=== PATIENT | female | born 1990 | race Caucasian/White ===

== ENCOUNTER → 2017-12-04 16:10 | Outpatient (CLI) | payer MEDICAID, SELFPAY ==
[2017-12-12 08:21] LABS: HPV APTIMA, High Risk Negative (Negative); HPV Reflexed? YES, CHARGE PATIENT
== END ==
PROVIDERS: Visit Provider Obstetrics & Gynecology
DX: Z12.4 Encounter for screening for malignant neoplasm of cervix (principal)
CPT/HCPCS: 87624; 88175; G0145

== ENCOUNTER 2018-01-10 12:13 | Emergency (ER) | payer MEDICAID, SELFPAY ==
[2018-01-10 12:14] VITALS: BP 108/79; PULSE 87; RESP 16; TEMP 36.6; O2SAT 97; BMI 31.2
[2018-01-10 13:02] LABS: Absolute Lymphocyte Count 2.57 X10^3/ul (0.83-4.51); Absolute Neutrophil Count 4.4 X10^3/uL (2.0-7.7); Basophil# 0.02 X10^3/uL; Basophil% 0.3 % (0-1); Eosinophil# 0.38 X10^3/uL; Eosinophils% 4.9 % (0-5); Hemoglobin 13.8 g/dl (12.0-15.0); Lymphocyte # 2.57 X10^3/ul (4.0); Lymphocyte % 33.2 % (19-41); Mean Corp Hgb Conc 33.7 g/gl (32-36); Mean Corpuscular Hgb 30.1 pg (27.0-32.0); Mean Corpuscular Volume 89.3 fL (81-99); Mean Platelet Vol. 9.8 fl (6.2-12.0); Monocyte# 0.31 X10^3/uL; Neutrophil # 4.44 X10^3/uL (2.7-7.7); Neutrophil % 57.5 % (47-70); Platelet Count 246 K/mm3 (150-450); RBC Distribution Width CV 12.9 % (11.6-14.6); RBC Distribution Width SD 41.9 fl (35.1-43.9); Red Blood Count 4.59 M/mm3 (4.2-5.4); White Blood Count 7.7 K/mm3 (4.4-11.0)
[2018-01-10 13:03] LABS: POSITIVE COUNT NO; POSITIVE DIFFERENTIAL NO; POSITIVE MORPHOLOGY NO
[2018-01-10 13:16] LABS: Anion Gap 4 (5-15); BUN 8 mg/dL (7-18); BUN/Creat Ratio 12.8 RATIO (10-20); Calcium,Total 8.4 mg/dL (8.5-10.1); Chloride 109 mmol/L (98-107); Creatinine, Serum 0.63 mg/dL (0.55-1.02); EST Glomerular Filtration Rate 120 mL/min (>60); Est Glom Filt Rate - Afr Amer 146 mL/min (>60); Estimated Creatinine Clearance 95.49 ml/min; Glucose 78 mg/dL (74-106); Potassium 3.9 mmol/L (3.5-5.1); Sodium Level 141 mmol/L (136-145)
--- NOTE | 2018-01-10 13:20 | ED.VISSUMM ---
- ER Visit Summary Date of Service: 01/10/18 Chief Complaint: I do not like feeling like this History of Present Illness: The patient is a 27 F who presents with chief complaint of being sleepy, slurred speech and not herself since taking her first dose of Celexa and hydroxyzine last evening. Documents from clinic clinic were reviewed. She was seen for fatigue and was prescribed medication for depression anxiety. She denies fever, chills night sweats. Denies weight gain or weight loss. She denies any ocular, visual auditory symptoms. She denies chest pain, palpitations or rapid heart rate. She denies shortness of breath, difficulty breathing, dyspnea on exertion, orthopnea or PND. She denies any bowel pain, nausea, vomiting or diarrhea. She denies any dysuria, frequency, urgency hematuria. She denies any myalgias or arthralgias or back pain. She denies rash or any lesions. She does complain of generalized weakness and paresthesia bilaterally. She has no other complaints please read written note. Next field vital signs are normal. Patient appears groggy. Speech is slightly slurred. Eyes are glassy. Pupils are equal round reactive. Extra muscles are intact. Conjunctive is normal. Sclerae anicteric. TMs normal. Posterior pharynx are empty or exudate. Uvula is midline. There is no oral lesions noted. Mucosa is slightly dry. Heart is regular without murmur, gallop or rub. S1 and S2 are normal. Lungs are clear to auscultation with good movement of air bilaterally. Abdomen is soft nontender. Patient is easily arousable and oriented ?3. Motor is 5 over 5. Sensory is intact. DTRs are symmetric with no clonus or Babinski sign. Cranial 2 through 12 are intact. Cerebellar testing is normal. Physical Examination: BMP and CMP are unremarkable. Test Results: BC and BMP were obtained since she is scheduled for outpatient testing and to rule out infectious cause or electrolyte abnormality. Suspect this is secondary to adverse reaction to medication. Emergency Department Course and Treatment: Patient underwent evaluation for her drowsiness to rule out electrolyte or infectious etiology. Treatment Plan: Discontinue Celexa and hydroxyzine. She was instructed to contact the physician assistant professor of geography to prescribe those medicines. Disposition: Discharged home in stable condition with spouse Impression: Adverse drug reaction This note was generated with Balls[employer]ieation software. It may contain incorrect words, spelling, and punctuation that were not noted in review of the chart prior to signing ED Disposition - Plan for ED Patient: Disposition: Home or Assisted Living Chief Complaint: General Illness Instructions: ED Drug React Adverse Other Referrals: Care Physician,No Primary [Primary Care Provider] - Additional Instructions: Contact Thao Gagnon physician assistant professor of geography who you saw yesterday at the [facility].
--- NOTE | 2018-01-10 13:24 | ED.DCSUM_ITS ---
- ER Visit Summary Date of Service: 01/10/18 Chief Complaint: I do not like feeling like this History of Present Illness: The patient is a 27 F who presents with chief complaint of being sleepy, slurred speech and not herself since taking her first dose of Celexa and hydroxyzine last evening. Documents from clinic clinic were reviewed. She was seen for fatigue and was prescribed medication for depression anxiety. She denies fever, chills night sweats. Denies weight gain or weight loss. She denies any ocular, visual auditory symptoms. She denies chest pain, palpitations or rapid heart rate. She denies shortness of breath, difficulty breathing, dyspnea on exertion, orthopnea or PND. She denies any bowel pain, nausea, vomiting or diarrhea. She denies any dysuria, frequency, urgency hematuria. She denies any myalgias or arthralgias or back pain. She denies rash or any lesions. She does complain of generalized weakness and paresthesia bilaterally. She has no other complaints please read written note. Next field vital signs are normal. Patient appears groggy. Speech is slightly slurred. Eyes are glassy. Pupils are equal round reactive. Extra muscles are intact. Conjunctive is normal. Sclerae anicteric. TMs normal. Posterior pharynx are empty or exudate. Uvula is midline. There is no oral lesions noted. Mucosa is slightly dry. Heart is regular without murmur, gallop or rub. S1 and S2 are normal. Lungs are clear to auscultation with good movement of air bilaterally. Abdomen is soft nontender. Patient is easily arousable and oriented ?3. Motor is 5 over 5. Sensory is intact. DTRs are symmetric with no clonus or Babinski sign. Cranial 2 through 12 are intact. Cerebellar testing is normal. Physical Examination: BMP and CMP are unremarkable. Test Results: BC and BMP were obtained since she is scheduled for outpatient testing and to rule out infectious cause or electrolyte abnormality. Suspect this is secondary to adverse reaction to medication. Emergency Department Course and Treatment: Patient underwent evaluation for her drowsiness to rule out electrolyte or infectious etiology. Treatment Plan: Discontinue Celexa and hydroxyzine. She was instructed to contact the physician warehouse administrative assistant to prescribe those medicines. Disposition: Discharged home in stable condition with spouse Impression: Adverse drug reaction This note was generated with Root Orangeation software. It may contain incorrect words, spelling, and punctuation that were not noted in review of the chart prior to signing ED Disposition - Plan for ED Patient: Disposition: Home or Assisted Living Chief Complaint: General Illness Instructions: ED Drug React Adverse Other Referrals: Care Physician,No Primary [Primary Care Provider] - Additional Instructions: Contact Thao Gagnon physician warehouse administrative assistant who you saw yesterday at the [facility].
[2018-01-10 14:05] VITALS: BP 103/62
== END 2018-01-10 14:06 | disposition home or self-care (01) ==
PROVIDERS: Emergency Provider Emergency Medicine
DX: R47.81 Slurred speech (principal); T43.225A Adverse effect of selective serotonin reuptake inhibitors, initial encounter; T43.595A Adverse effect of other antipsychotics and neuroleptics, initial encounter; Y92.9 Unspecified place or not applicable; F32.9 Major depressive disorder, single episode, unspecified; F41.9 Anxiety disorder, unspecified
CPT/HCPCS: 80048; 85025; 99282

== ENCOUNTER → 2019-01-09 13:05 | Outpatient (CLI) | payer MEDICAID, SELFPAY ==
[2019-01-16 21:01] LABS: HPV APTIMA, High Risk Negative (Negative)
[2019-01-16 21:18] LABS: HPV Reflexed? YES, CHARGE PATIENT
== END ==
PROVIDERS: Visit Provider Obstetrics & Gynecology
DX: Z12.4 Encounter for screening for malignant neoplasm of cervix (principal)
CPT/HCPCS: 87624; 88175; G0145

== ENCOUNTER → 2020-03-07 11:03 | Outpatient (CLI) | payer MEDICAID, SELFPAY ==
[2020-03-07 13:12] LABS: Internal QC Validated? YES +Cl - CLEAR BKGD; Pregnancy, Serum, hCG Quali. NEGATIVE Negative
[2020-03-07 13:23] LABS: Progesterone Level 7.96 ng/mL (See Comment)
== END ==
PROVIDERS: Visit Provider Obstetrics & Gynecology
DX: Z30.430 Encounter for insertion of intrauterine contraceptive device (principal)
CPT/HCPCS: 36415; 84144; 84703

== ENCOUNTER → 2020-03-10 17:25 | Outpatient (CLI) | payer MEDICAID, SELFPAY ==
[2020-03-10 20:30] LABS: Chlamydia Trachomatis by PCR Negative (Negative); Neisserai gonorrhoeae by PCR Negative (Negative); Probe Check PASS; Sample Adequacy Control PASS; Specimen Processing Control PASS
[2020-03-22 04:57] LABS: HPV APTIMA, High Risk Negative (Negative); HPV Reflexed? YES, CHARGE PATIENT
== END ==
PROVIDERS: Visit Provider Obstetrics & Gynecology
DX: Z12.4 Encounter for screening for malignant neoplasm of cervix (principal); Z11.3 Encounter for screening for infections with a predominantly sexual mode of transmission
CPT/HCPCS: 87491; 87591; 87624; 88175; G0145

== ENCOUNTER → 2020-04-14 15:02 | Outpatient (CLI) | payer MEDICAID, SELFPAY ==
--- NOTE | 2020-04-14 | IMM_PTH ---
PATIENT: NANI HOUSER LOC: [facility] U#:[id number] AGE/SX: 34/F ROOM: RE04/14/[address]: Dr. Joselo Valentine MD : 1990 BED: DIS: SPEC #: [id number] RECD: 04/18/20 13:00 STATUS: TAO ALLISON #: [id number] BENY: 04/14/20 00:[address]: Joselo Valentine DEPT: IMMUNOHISTOCHEMISTRY RECD BY: Juliana Crouch ENTERED: 04/18/20 13:01 SP TYPE: IMMUNO OTHR DR: No Primary Care Phys Tissues: B - Uterine cervix, NOS Procedures: p16 (initial) KI-67 (add) PHYSICIAN & INSTITUTION [place] [id number] SPECIMEN INFORMATION: Tissue Source: B - Cervical biopsy at 6 o'clock Clinical Info: ASCUS Specimen Number: [id number] CPT code: 52335, 00170 METHODOLOGY: Deparaffinized sections of prefer/formalin-fixed tissue or PAP/DQ stained slides are incubated with monoclonal/polyclonal antibodies/oligonucleotide probes. Localization is made via biotin free immunoperoxidase method. Appropriate controls are performed and reacted as expected. Results on target cell population are indicated in the following table: RESULTS: ANTIBODY / CLONE RESULT Block B P16 (E6H4) positive, focal & patchy Ki-67 (30-9) positive, low These tests were developed and their performance characteristics determined by [facility]. They may not have been cleared or approved by the U.S. Food and Drug Administration. The FDA has determined that such clearance or approval is not necessary. The above immunohistochemical/dualISH markers are ordered and reviewed by the Pathologist. INTERPRETATION: B. Cervix at 6 o'clock, biopsy: Focal changes suspicious for HPV cytopathic effects. SJ:pedro 04/18/20
--- NOTE | 2020-04-14 12:00 | CER_PTH ---
PATIENT: NANI HOUSER LOC: [facility] U#:[id number] AGE/SX: 34/F ROOM: RE04/14/[address]: Dr. Joselo Valentine MD : 1990 BED: DIS: SPEC #: [id number] RECD: 04/14/20 15:38 STATUS: TAO ALLISON #: [id number] BENY: 04/14/20 12:[address]: Joselo Valentine DEPT: SURGICAL PATHOLOGY RECD BY: Jose Villareal ENTERED: 04/15/20 07:50 SP TYPE: CERV OTHR DR: No Primary Care Phys Tissues: A - Uterine cervix, NOS B - Uterine cervix, NOS Procedures: Surgery Specimen Level IV HEADER OPERATION: Colposcopy PRE-OP DIAGNOSIS: ASCUS pap x3, Mirena IUD TISSUE SUBMITTED: A - ECC, B - Cervical biopsy at 6 o'clock MICROSCOPIC DIAGNOSIS A. ECC: Fragments of benign ectocervical epithelium, benign endocervical epithelium and benign endocervical mucosa with mild chronic inflammation, blood and mucous. Negative for dysplasia. B. Cervix 6 o'clock, biopsy: Focal changes suspicious for HPV cytopathic effects. Chronic inflammation. See comment. NAMITA:pedro 04/18/20 COMMENT Immunohistochemistry ([id number]) for surrogate HPV marker (p16) supports the above diagnosis. MICROSCOPIC DESCRIPTION Slides are reviewed. GROSS DESCRIPTION A - Received in fixative is one container labeled with the patient's name and designated ECC. The specimen consists of multiple fragments of hemorrhagic mucoid tissue that in aggregate measure 1.5 x 0.8 x 0.2 cm. The specimen is totally submitted in one cassette. B - Received in fixative is one container labeled with the patient's name and designated cervical biopsy 6 o'clock. The specimen consists of multiple irregular fragments of young soft tissue mixed with mucoid tissue that in aggregate measure 2 x 0.5 x 0.1 cm. The specimen is totally submitted in one cassette. / NAMITA:pedro 04/15/20 TC:5 CPT: 24044 x2
== END ==
PROVIDERS: Visit Provider Obstetrics & Gynecology
DX: R87.610 Atypical squamous cells of undetermined significance on cytologic smear of cervix (ASC-US) (principal); Z97.5 Presence of (intrauterine) contraceptive device
CPT/HCPCS: 88305; 88341; 88342

== ENCOUNTER 2024-08-24 20:52 | Day surgery (SDC) | payer MEDICAID, SELFPAY ==
[2024-08-24 20:54] VITALS: BP 122/89; PULSE 91; RESP 18; TEMP 36.9; O2SAT 100; BMI 24.8
[2024-08-24 22:44] LABS: Absolute Lymphocyte Count 3.53 X10^3/uL (0.83-4.51); Absolute Neutrophil Count 8.2 X10^3/uL (2.0-7.7); Bacteria 0 SEEN /hpf (None Seen); Basophil# 0.06 X10^3/uL; Basophil% 0.5 % (0-1); Eosinophil# 0.48 X10^3/uL; Eosinophils% 3.6 % (0-5); Hematocrit 36.7 % (37-47); Hemoglobin 12.4 g/dL (12.0-15.0); Lymphocyte # 3.53 X10^3/ul (0.83-4.51); Lymphocyte % 26.8 % (19-41); Mean Corp Hgb Conc 33.8 g/dL (32-36); Mean Corpuscular Hgb 30.8 pg (27.0-32.0); Mean Corpuscular Volume 91.3 fL (81-99); Mean Platelet Vol. 9.8 fl (6.2-12.0); Monocyte# 0.82 X10^3/uL; Monocyte% 6.2 % (0-10); Mucous, Urine 0 SEEN /hpf (<or=2+); NRBC Flagged by Analyzer 0 % (0-5); Neutrophil # 8.24 X10^3/uL (2.7-7.7); Neutrophil % 62.6 % (47-70); Platelet Count 271 K/mm3 (150-450); RBC Distribution Width CV 12.6 % (11.6-14.6); Red Blood Count 4.02 M/mm3 (4.2-5.4); White Blood Count 13.2 K/mm3 (4.4-11.0)
[2024-08-24 22:47] LABS: Color, Urine Yellow (Yellow); Glucose, Dipstick Normal (Normal); Ketone-Dipstick Negative (Negative); Leukocyte Esterase-Dipstick 25 /ul (Negative); Nitrite-Dipstick Negative (Negative); Occult Blood-Urine 25 /ul (Negative); Protein-Dipstick 15 mg/dl (Negative); Urine Bilirubin Dipstick Negative (Negative); Urine Clarity Clear (Clear); Urine Urobilinogen 1 mg/dl (Normal)
[2024-08-24 22:52] VITALS: BP 124/86
[2024-08-24 22:54] LABS: Red Blood Cells-Urine 0-5 SEEN /hpf (0-5); White Blood Cells 0-5 SEEN /hpf (0-5)
[2024-08-24 22:55] LABS: Amorphous Sediment 3+; Internal QC Validated? YES +Cl - CLEAR BKGD; Squamous Epithelial Cells - UA 0-5 SEEN /hpf (5-10)
[2024-08-24 22:57] LABS: Pregnancy, Urine Positive Negative
--- NOTE | 2024-08-24 22:58 | US_ITS ---
ACR Level 3 findings have been noted. An addendum which confirms receipt of the report will follow. INDICATION: pain ,bleeding, positive preg test in ER EXAMINATION: Ultrasound US OB Less Than 14 Weeks COMPARISON: None. FINDINGS: 107 grayscale ultrasound images of the pelvis obtained transvaginally. In addition dedicated ovarian color Doppler and Doppler waveform interrogation was performed. Numerous cinematic series is provided. UTERUS: Uterus measures : 7.7 x 4.4 x 3.2 cm. IUD is in place with associated irregular nodular thickening of the endometrium containing moderate amount of poorly organized endometrial fluid. No definite intrauterine is identified. Myometrium is heterogeneous containing prominent vascularity. ADNEXA: Flow is documented to bilateral ovaries by color Doppler as well as Doppler waveform. There is a large 4.2 cm heterogeneous multicystic left adnexal lesion. Numerous bilateral peripheral subcentimeter ovarian follicles in a pattern which can be seen with polycystic ovaries in the appropriate clinical setting. Small to moderate amount of nearly anechoic free fluid. US/Transvaginal w/Preg US IMPRESSION: IUD is in place with associated irregular nodular thickening of the endometrium containing moderate amount of poorly organized endometrial fluid. No intrauterine is identified. Large 4 cm multicystic left adnexal lesion which may represent hemorrhagic cyst or other lesion without obvious pole, although ectopic is not excluded. Recommend correlation with beta-hCG value. Numerous bilateral peripheral subcentimeter ovarian follicles in a pattern which can be seen with polycystic ovaries in the appropriate clinical setting. Electronically Signed: Rusty Mayers MD at 0:36 EST ,
[2024-08-24 22:59] LABS: Anion Gap 6 (5-15); BUN 14 mg/dL (7-18); BUN/Creat Ratio 25.1 RATIO (10-20); Calcium,Total 8.6 mg/dL (8.5-10.1); Chloride 108 mmol/L (98-107); Creatinine, Serum 0.56 mg/dL (0.55-1.02); EST Glomerular Filtration Rate 132 mL/min (>60); Est Glom Filt Rate - Afr Amer 160 mL/min (>60); Estimated Creatinine Clearance 112.62 ml/min; Glucose 90 mg/dL (74-106); Potassium 3.7 mmol/L (3.5-5.1); Sodium Level 139 mmol/L (136-145)
[2024-08-24 23:39] LABS: hCG Titer Quant., Serum 299 mIU/mL (1-3)
[2024-08-25] VITALS (12 sets, daily range): BP systolic 114–157; BP diastolic 77–129; PULSE 74–123; RESP 18–36; TEMP 36.2–37; O2SAT 95–100; BMI 24.8
--- NOTE | 2024-08-25 00:26 | ED.VIS.FEGU ---
HPI HPI - Female History of Present Illness Chief Complaint: Vag Bleeding Informant: patient Narrative Narrative: Patient is a G5, P3 presenting with abnormal vaginal bleeding and pelvic pain worse on the left for the past month. She states that she has an IUD that has been in place for the past 5 years and is due to be replaced. She notes that she has not had a. Up until the last month. She states she has had episodes of very heavy bleeding with clots. Today she notes the bleeding is less and she just spotting. She saw her primary care doctor in [place] who did an exam and checked labs which she was told were negative/normal. She has not had any imaging. She was empirically treated for diverticulitis 1 week ago with no improvement of her symptoms. She notes that she has been having some diarrhea for few days that has resolved. She denies any blood in her stool. 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 Has a family history of ovarian cancer. She notes that she is tried using tampons but it hurts which is unusual for her. She denies any associated vaginal discharge. She has the pain is more in her pelvis on the left side but shoots down to her leg and into her kidney. She has had some mild associated dysuria. No vomiting reported. Intermittently feels lightheaded. No other complaints or concerns reported at this time. PFSH [facility] Home Medications ?Medication ?Instructions ?Recorded ?Last Taken ?Type citalopram 20 mg tablet 20 mg PO DAILY 01/10/18 Unknown History Allergy/AdvReac Type Severity Reaction Status Date / Time morphine AdvReac Other Verified 08/24/24 20:53 Social History Smoking Status: Current every day smoker tobacco type: cigarettes ROS ROS ED Constitutional Constitutional ED: Reports chills; Denies fever(s) Gastrointestinal Gastrointestinal: Reports abdominal pain, diarrhea and nausea; Denies constipation or vomiting Genitourinary Genitourinary ED: Reports dysuria and other Details: Heavy vaginal bleeding Musculoskeletal Musculoskeletal: Denies arthralgias or myalgias Integumentary Denies rash Neurologic Neurologic: Reports weakness Hematologic/Lymphatic Hematologic/Lymphatic: Denies easy bleeding or easy bruising EXAM Physical Exam Const Vital Signs: 08/24/24 20:54 08/24/24 22:52 08/25/24 00:00 Temperature 98.4 F Temperature Source Temporal Pulse Rate 91 76 Respiratory Rate 18 18 Blood Pressure 122/89 H 124/86 H 128/91 H Blood Pressure Mean 100 98 103 Pulse Ox 100 99 Oxygen Delivery Method Room Air Room Air Positive well nourished and well developed General Appearance ED: well developed and NAD; Negative for pallor HEENT Reports moist mucous membranes Eyes PERRL Neck supple Chest Wall inspection of chest normal Resp normal respiratory effort and clear to auscultation bilaterally Cardio regular rate and regular rhythm GI soft to palpation Auscultation: normoactive bowel sounds Palpation: tender LLQ; Negative for guarding or rigid Back/Spine no CVA tenderness Extremity normal to inspection Neuro oriented x3 Sensorium / Orientation: alert Motor Exam: Negative for general weakness Psych mental status grossly normal Skin no rashes or lesions noted General Skin Exam: Negative for pallor MDM MDM MDM Narrative Medical decision making narrative: Patient evaluated for heavy vaginal bleeding and pelvic pain. States that she has an IUD but needs to be replaced. Differential includes ectopic , failure of IUD, migration of IUD, uterine perforation, dysfunctional uterine bleeding, intra-abdominal infection, symptomatic anemia and UTI. Will start with urine, urine , CBC, BMP and pelvic ultrasound to assess uterine lining and IUD positioning. Patient initially is agreeable to Toradol for pain control. Urine comes back negative positive. Will add on hCG quant's, OB ultrasound, Rh number and defer Toradol. Patient is a mild leukocytosis of 13.2. Hemoglobin is normal at 12.4. Quant is elevated to 99. Urinalysis largely normal. Patient is O-. Is ordered RhoGAM. Ultrasound shows IUD in place with associate irregular nodular thickening of the endometrium containing bladder amounts of poorly organized in the endometrial fluid. There is no IUP appreciated. There is a large 4 cm multicystic left adnexal lesion which may represent hemorrhagic cyst or other lesion without obvious pole and cannot exclude ectopic . Case discussed with DELIVERY REPRESENTATIVE on-call, Dr. Jerald Ojeda. She will come in to evaluate the patient. She suspects this is an ectopic . Patient's again is offered pain medicine but she does except at this time. She is informed of our concerns. Patient was taken to the OR by DELIVERY REPRESENTATIVE. Discharged from there. Lab Data Attestation: I reviewed the patient's lab results. Labs: Laboratory Results - last 24 hr 08/24/24 08/24/24 22:37 23:15 WBC 13.2 H RBC 4.02 L Hgb 12.4 Hct 36.7 L MCV 91.3 MCH 30.8 MCHC 33.8 RDW Std Deviation 42.0 RDW Coeff of Shannan 12.6 Plt Count 271 MPV 9.8 Immature Gran % (Auto) 0.300 Neut % (Auto) 62.6 Lymph % (Auto) 26.8 [place] % (Auto) 6.2 Eos % (Auto) 3.6 Baso % (Auto) 0.5 Absolute Neuts (auto) 8.2 H Absolute Lymphs (auto) 3.53 Nucleated RBC % 0 Sodium 139 Potassium 3.7 Chloride 108 H Carbon Dioxide 25.0 Anion Gap 6 BUN 14 Creatinine 0.56 Estim Creat Clear Calc 112.62 Est GFR (MDRD) Af Amer 160 Est GFR (MDRD) Non-Af 132 BUN/Creatinine Ratio 25.1 H Glucose 90 Calcium 8.6 HCG, Quant 299 H Urine Color Yellow Urine Clarity Clear Urine pH 7.0 Ur Specific [place] 1.010 Urine Protein 15 H Urine Glucose (UA) Normal Urine Ketones Negative Urine Occult Blood 25 H Urine Nitrite Negative Urine Bilirubin Negative Urine Urobilinogen 1 H Ur Leukocyte Esterase 25 H Urine RBC 0-5 SEEN Urine WBC 0-5 SEEN Ur Squamous Epith Cells 0-5 SEEN Amorphous Sediment 3+ Urine Bacteria 0 SEEN Urine Mucus 0 SEEN Urine Test Positive H Blood Type O NEGATIVE Radiography Diagnostic Testing: Clinical Impression(s) from Imaging Studies Obstetrics Ultrasound 08/24/24 22:58 IMPRESSION: IUD is in place with associated irregular nodular thickening of the endometrium containing moderate amount of poorly organized endometrial fluid. No intrauterine is identified. Large 4 cm multicystic left adnexal lesion which may represent hemorrhagic cyst or other lesion without obvious pole, although ectopic is not excluded. Recommend correlation with beta-hCG value. Numerous bilateral peripheral subcentimeter ovarian follicles in a pattern which can be seen with polycystic ovaries in the appropriate clinical setting. Electronically Signed: Rusty Mayers MD at 0:36 EST , ADDENDUM: 08/25/24 0054 IMPRESSION: IUD is in place with associated irregular nodular thickening of the endometrium containing moderate amount of poorly organized endometrial fluid. No intrauterine is identified. Large 4 cm multicystic left adnexal lesion which may represent hemorrhagic cyst or other lesion without obvious pole, although ectopic is not excluded. Recommend correlation with beta-hCG value. Numerous bilateral peripheral subcentimeter ovarian follicles in a pattern which can be seen with polycystic ovaries in the appropriate clinical setting. N.B. : Monica Gusman DO, confirmed on 08/25/2024 00:47:31 (ET) that the healthcare facility has received the radiology report. Electronically Signed: Rusty Mayers MD at 0:36 EST , ADDENDUM: 08/25/24 0119 IMPRESSION: undefined Management Discussion w/another healthcare provider: Director Professional Services Discharge Plan Triage Chief Complaint: Vag Bleeding ED Provider: Monica Gusman Dx/Rx/DC Orders Clinical Impression: Ectopic of left ovary, Vaginal bleeding Prescriptions: No Action citalopram 20 MG tablet 20 mg PO DAILY Primary Care Provider: Jennifer Tom Referrals: Jennifer Tom PA-C [Primary Care Provider] - Print Language: Telugu
[2024-08-25] MEDS: Ondansetron 4 MG/2 ML Vial IV (01:08)
[2024-08-25] MEDS: fentaNYL 100 MCG/2 ML Ampul 50 MCG IV (01:08)
[2024-08-25] MEDS: Rho(D) Immune Globulin 300 MCG (1500 Unit) Syringe IV (01:30)
--- NOTE | 2024-08-25 01:37 | HP.PCM.OB_ITS ---
HPI - General HPI Narrative NANI HOUSER, is a 33 F who presents with left lower pelvic pain x 1 week. she has had vaginal bleeding, has a known IUD in place, and positive hcg here with a quant of 300. on Ultrasound there is a left adnexal mass suspicious for ectopic . PFSH PFSH Home Medications ?Medication ?Instructions ?Recorded ?Last Taken ?Type citalopram 20 mg tablet 20 mg PO DAILY 01/10/18 Unknown History Allergy/AdvReac Type Severity Reaction Status Date / Time morphine AdvReac Other Verified 08/24/24 20:53 Surgical History (Updated 08/25/24 @ 01:[address] Nora Benoit MD) History of surgery on arm delivery delivered Social History Smoking Status: Current every day smoker tobacco type: cigarettes History 5 Elective abortions Hx Para 2 Spontaneous abortions Hx # Term Pregnancies Ectopic pregnancies Hx # Pregnancies Multiple births # of living children 3 ROS Review of Systems ROS Unobtainable: due to mental status and other Constitutional Constitutional: Reports systems reviewed and no addt'l complaints, except as documented; Denies as per HPI, change in weight, fatigue, fever(s), malaise, weakness or other Eyes Eyes: Reports systems reviewed and no addt'l complaints, except as documented; Denies as per HPI, change in vision or other ENT HEENT: Reports as per HPI and dizziness; Denies dry mouth, headache(s), loss taste/smell, nasal congestion, nasal discharge, neck pain, sore throat or other Respiratory/Chest Respiratory/Chest: Reports systems reviewed and no addt'l complaints, except as documented Gastrointestinal Gastrointestinal: Reports systems reviewed and no addt'l complaints, except as documented and nausea; Denies vomiting Musculoskeletal Musculoskeletal: Reports systems reviewed and no addt'l complaints, except as documented; Denies back pain or joint pain Neurologic Neurologic: Reports systems reviewed and no addt'l complaints, except as documented Psychiatric Psychiatric: Reports systems reviewed and no addt'l complaints, except as documented Endocrine Endocrinology: Reports systems reviewed and no addt'l complaints, except as d ocumented Hematologic/Lymphatic Hematologic/Lymphatic: Reports systems reviewed and no addt'l complaints, except as documented Vital Signs Vital Signs Vital Signs: 08/24/24 20:54 08/24/24 22:52 08/25/24 00:00 Temperature 98.4 F Temperature Source Temporal Pulse Rate 91 76 Respiratory Rate 18 18 Blood Pressure 122/89 H 124/86 H 128/91 H Blood Pressure Mean 100 98 103 Pulse Ox 100 99 Oxygen Delivery Method Room Air Room Air Weight Weight: 127 lb 4.8 oz Body Mass Index (BMI) 24.8 Physical Exam Const alert, oriented x3 and no apparent distress HEENT normocephalic Head and Scalp: atraumatic Eyes EOMs intact bilaterally and conjunctivae normal Neck full ROM, no lymphadenopathy, supple and thyroid normal General: trachea midline Lymph Lymphatic: no lymphadenopathy noted Resp normal respiratory effort, no retractions, no use of accessory muscles and clear to auscultation bilaterally Cardio regular rhythm GI normal to inspection, nondistended, normoactive bowel sounds, soft to palpation, non-distended and no masses Inspection: Negative for abdominal distention Palpation: tender Back/Spine no CVA tenderness Extremity normal to inspection Skin no rashes or lesions noted Neuro moves all extremities and deep tendon reflexes 2+ bilaterally Motor Exam: clonus absent Psych mental status grossly normal Labs Labs Labs: Blood Type O NEGATIVE Antibody Screen NEGATIVE Hct 36.7 % (37-47) L Hgb 12.4 g/dL (12.0-15.0) Obstetrics Ultrasound VZV IgG Antibody 427 index (Immune >165) Rubella IgG Antibody 134.5 IU/mL Hep Bs Antigen Negative (Negative) Chlamydia DNA (ANSELMO) Negative (Negative) N.gonorrhoeae DNA (ANSELMO) Negative (Negative) Glucose 1 Hr 50 gm 100 mg/dL (70-140) Group B Strep DNA POSITIVE (Negative) H Rhogam given: No Assessment & Plan (1) Ectopic of left ovary: (2) Vaginal bleeding: PLAN: Plan proceed with laparoscopic salpingectomy, treatment of ectopic. After discussing the patient's diagnosis and treatment plan options, patient wishes to proceed with surgical management. I have discussed with the patient the risks, benefits, and alternatives of the procedure which include but are not limited to risks of anesthesia, bleeding, infection, possible damage to bowel, bladder, or surrounding vasculature which could lead to additional surgery to evaluate any complications. Patient agrees to procedure and wishes to proceed. ACOG/uptodate references given for additional information regarding procedure.
[2024-08-25] MEDS: 0.9% Normal Saline (1000mL) 1,000 ML 999 ML IV (01:43)
[2024-08-25] MEDS: 0.9% Normal Saline (1000mL) 1,000 ML 15 ML IV ×2 (01:45→03:50)
--- NOTE | 2024-08-25 02:00 | PCM.PRE.AN2 ---
ASA Classification* ASA Classification ASA Classification: 2 and E Assessment & Plan Anesthesia* Anesthesia Assessment Anesthesia Assessment: Discussed sedation and/or anesthesia options, risks, benefits, and alternatives with patient/parents/legal guardian/POA. Questions invited. The patient/parents/legal guardian/POA seems to understand and agrees to proceed with anesthesia plan. Reviewed the physical assessment, medical history, allergy history and patient home medications list prior to surgery/procedure/anesthetic and documented any changes. Performed airway and anesthesia risk assessments. Anesthesia Type Anesthesia Type: General Anesthesia Focused Assessment* Temperature: 98.6 F Pulse Rate: 76 Blood Pressure: 128/91 Respiratory Rate: 18 Pulse Ox: 99 Airway Assessment Mouth opens: >3 cm Mallampati Score: II Focused Labs Anesthesia Preop lab: CBC WBC 13.2 K/mm3 (4.4-11.0) H 08/24/24 22:37 RBC 4.02 M/mm3 (4.2-5.4) L 08/24/24 22:37 Hgb 12.4 g/dL (12.0-15.0) 08/24/24 22:37 Hct 36.7 % (37-47) L 08/24/24 22:37 Plt Count 271 K/mm3 (150-450) 08/24/24 22:37 CHEMISTRY Potassium 3.7 mmol/L (3.5-5.1) 08/24/24 22:37 Sodium 139 mmol/L (136-145) 08/24/24 22:37 BUN 14 mg/dL (7-18) 08/24/24 22:37 Creatinine 0.56 mg/dL (0.55-1.02) 08/24/24 22:37 Glucose 90 mg/dL (74-106) 08/24/24 22:37 POC Glucose 93 mg/dL (70-110) 01/25/17 17:59 TSH 0.10 uIU/mL (0.358-3.74) L 01/07/14 15:36 COAG PT 11.7 SECONDS (11.7-14.9) 01/25/17 18:07 HCG, Quant 299 mIU/mL (1-3) H 08/24/24 23:15 Urine Test Positive Negative H 08/24/24 22:37 Pre-Assessment Diagnosis/Proposed Procedure Planned Operative Procedure(s): laparoscopic ectopic removal Anesthesia History 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 When Was Last Pacemaker Check QUESTION #4 FULL TEXT: You/Your Family Experience fever (hyperthermia) with Anesthesia Last Oral Intake Last Oral intake: Last Oral Intake NPO since Meds taken in AM with sips of water? Meds patient instructed to take am of surgery PONV PONV - steam shovel operating engineer: PONV - steam shovel operating engineer Female HX of Motion Sickness HX of N/V After Surgery Non-Smoker Duration of Surgery greater than 60 minutes Number of Risk Factors PONV Score Height & Weight Height & Weight: Anesthesia: Height & Weight Height 5 ft 08/25/24 01:44 Weight: 57.742 kg 08/25/24 01:44 Body Mass Index (BMI) 24.8 08/25/24 01:44 Respiratory Assessment Respiratory Assessment - steam shovel operating engineer: Respiratory Tract Infection Hx - steam shovel operating engineer Hx Respiratory Tract Infection No 08/25/24 01:44 STOP Sleep Apnea STOP Sleep Apnea - steam shovel operating engineer: STOP Sleep Apnea - steam shovel operating engineer Hx Hypertension No 08/25/24 01:44 Hx Sleep Apnea No 08/25/24 01:44 CPAP BIPAP Do you snore loudly (louder No 08/25/24 01:44 than talking or can be heard Do you often feel tired/ No 08/25/24 01:44 fatigued/ sleepy during daytime? Has anyone observed you stop No 08/25/24 01:44 breathing during sleep? STOP Results Negative 08/25/24 01:44 QUESTION #5 FULL TEXT : Do you snore loudly (louder than talking or can be heard through closed doors)? Tobacco Use History Tobacco Use History - steam shovel operating engineer: Tobacco Use History - steam shovel operating engineer Tobacco Use Smoking Status Current every day smoker 08/24/24 22:41 Hx Tobacco Use Yes 01/10/18 12:30 Years Smoking Packs Smoked per Day Smoking Cessation Date was within the last 15 years Hx Smoking Cessation Date Hx Smoking Cessation Counseling Hematologic Medial History Hematologic Hx - steam shovel operating engineer: Hematologic Medical Hx - rd scientist Hx of Blood Transfusion Hx of Transfusion in last 3 Months Date of Last Transfusion (if within last 3 months) Ever experience any problems with transfusion(s)? Specify any problems Hx of Preganancy in last 3 Months Nurse Filling Out Transfusion & Questions: Date: Time: Patient unable to answer at this time (ie. confused, unrespo /Reproduction History /Reproductive History - steam shovel operating engineer: /Reproductive Hx- steam shovel operating engineer Hx Now Yes 08/25/24 01:44 Gestational Age (in weeks): EDC: Hx Hx Para 2 08/25/24 01:40 Hx Section SAB No 08/24/24 20:54 Active Medications Active Medications: Current Medications Generic Name Dose Route Start Last Admin Trade Name Freq PRN Reason Stop Dose Admin Hydrocodone Bitart/Acetaminophen 1 - 2 tablet 08/25/24 02:21 Hydrocodone Bitartrate/Apap 5/325 Tablet PO Q6H PRN PRN Pain Score 1-10 Ondansetron HCl 4 mg 08/25/24 02:21 Ondansetron 4 Mg/2 Ml Vial IM X1 PRN NAUSEA PFSH Home Medications ?Medication ?Instructions ?Recorded ?Last Taken ?Type citalopram 20 mg tablet 20 mg PO DAILY 01/10/18 Unknown History naproxen 500 mg tablet 500 mg PO BID PRN PRN Pain #30 tabs 08/25/24 Unknown Rx oxycodone-acetaminophen 5 mg-325 1 tab PO Q6H PRN pain 7 days #20 08/25/24 Unknown Rx mg tablet (Percocet) tabs Allergy/AdvReac Type Severity Reaction Status Date / Time morphine AdvReac Other Verified 08/24/24 20:53 Surgical History (Updated 08/25/24 @ 03:[address] Nora Benoit MD) S/P oophorectomy History of salpingectomy History of surgery on arm delivery delivered Social History Smoking Status: Current every day smoker tobacco type: cigarettes Review of Systems (Anesthesia) ROS Narrative System reviewed and no additional complaints, except as documented.
--- NOTE | 2024-08-25 02:09 | PCM.PRE.AN2 ---
ASA Classification* ASA Classification ASA Classification: 2 and E Assessment & Plan Anesthesia* Anesthesia Assessment Anesthesia Assessment: Discussed sedation and/or anesthesia options, risks, benefits, and alternatives with patient/parents/legal guardian/POA. Questions invited. The patient/parents/legal guardian/POA seems to understand and agrees to proceed with anesthesia plan. Reviewed the physical assessment, medical history, allergy history and patient home medications list prior to surgery/procedure/anesthetic and documented any changes. Performed airway and anesthesia risk assessments. Anesthesia Type Anesthesia Type: General Anesthesia Focused Assessment* Temperature: 98.6 F Pulse Rate: 76 Blood Pressure: 128/91 Respiratory Rate: 18 Pulse Ox: 99 Airway Assessment Mouth opens: 2 cm Mallampati Score: II Focused Labs Anesthesia Preop lab: CBC WBC 7.9 K/mm3 (4.4-11.0) 08/27/24 15:23 RBC 3.97 M/mm3 (4.2-5.4) L 08/27/24 15:23 Hgb 12.2 g/dL (12.0-15.0) 08/27/24 15:23 Hct 37.3 % (37-47) 08/27/24 15:23 Plt Count 276 K/mm3 (150-450) 08/27/24 15:23 CHEMISTRY Potassium 4.1 mmol/L (3.5-5.1) 08/27/24 15:23 Sodium 142 mmol/L (136-145) 08/27/24 15:23 BUN 10 mg/dL (7-18) 08/27/24 15:23 Creatinine 0.59 mg/dL (0.55-1.02) 08/27/24 15:23 Glucose 85 mg/dL (74-106) 08/27/24 15:23 POC Glucose 93 mg/dL (70-110) 01/25/17 17:59 TSH 0.10 uIU/mL (0.358-3.74) L 01/07/14 15:36 COAG PT 11.7 SECONDS (11.7-14.9) 01/25/17 18:07 HCG, Quant 29 mIU/mL (1-3) H 08/27/24 16:30 Urine Test Positive Negative H 08/24/24 22:37 Pre-Assessment Diagnosis/Proposed Procedure Planned Operative Procedure(s): laparoscopic ectopic removal Anesthesia History 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 When Was Last Pacemaker Check QUESTION #4 FULL TEXT: You/Your Family Experience fever (hyperthermia) with Anesthesia Last Oral Intake Last Oral intake: Last Oral Intake NPO since 1800 Meds taken in AM with sips of water? Meds patient instructed to take am of surgery PONV PONV - outside residential sales professional: PONV - outside residential sales professional Female x HX of Motion Sickness HX of N/V After Surgery Non-Smoker Duration of Surgery greater than 60 minutes Number of Risk Factors PONV Score Height & Weight Height & Weight: Anesthesia: Height & Weight Height 5 ft 08/25/24 01:44 Weight: 57.742 kg 08/25/24 01:44 Body Mass Index (BMI) 24.8 08/25/24 01:44 Respiratory Assessment Respiratory Assessment - outside residential sales professional: Respiratory Tract Infection Hx - outside residential sales professional Hx Respiratory Tract Infection No 08/25/24 01:44 STOP Sleep Apnea STOP Sleep Apnea - outside residential sales professional: STOP Sleep Apnea - outside residential sales professional Hx Hypertension No 08/25/24 01:44 Hx Sleep Apnea No 08/25/24 01:44 CPAP BIPAP Do you snore loudly (louder No 08/25/24 01:44 than talking or can be heard Do you often feel tired/ No 08/25/24 01:44 fatigued/ sleepy during daytime? Has anyone observed you stop No 08/25/24 01:44 breathing during sleep? STOP Results Negative 08/25/24 01:44 QUESTION #5 FULL TEXT : Do you snore loudly (louder than talking or can be heard through closed doors)? 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 Specify any problems Hx of Preganancy in last 3 Months Nurse Filling Out Transfusion & Questions: Date: Time: Patient unable to answer at this time (ie. confused, unrespo /Reproduction History /Reproductive History - outside residential sales professional: /Reproductive Hx- outside residential sales professional Hx Now Yes 08/25/24 01:44 Gestational Age (in weeks): EDC: Hx Hx Para 2 08/25/24 01:40 Hx Section SAB No 08/24/24 20:54 Active Medications Active Medications: Current Medications Generic Name Dose Route Start Last Admin Trade Name Freq PRN Reason Stop Dose Admin Sodium Chloride 1,000 mls @ 999 mls/hr 08/25/24 01:13 08/25/24 01:43 IV 08/25/24 02:13 999 mls/hr .Q1H1M ONE Administration Protocol PFSH Home Medications ?Medication ?Instructions ?Recorded ?Last Taken ?Type citalopram 20 mg tablet 20 mg PO DAILY 01/10/18 Unknown History naproxen 500 mg tablet 500 mg PO BID PRN PRN Pain #30 tabs 08/25/24 Unknown Rx oxycodone-acetaminophen 5 mg-325 1 tab PO Q6H PRN pain 7 days #20 08/25/24 Unknown Rx mg tablet (Percocet) tabs Allergy/AdvReac Type Severity Reaction Status Date / Time morphine AdvReac Other Verified 08/27/24 15:05 Surgical History S/P oophorectomy History of salpingectomy History of surgery on arm delivery delivered Social History Smoking Status: Current every day smoker tobacco type: cigarettes Review of Systems (Anesthesia) ROS Narrative System reviewed and no additional complaints, except as documented.
--- NOTE | 2024-08-25 02:14 | PCM.OPRPT ---
Problems Associated Problem List Diagnoses (1) Ectopic of left ovary: (2) S/P oophorectomy: Procedures Urinary/Genital [id number]: [id number] Treat ectopic lapro w/ salpingectomy Operative Report (Standard) Operative Information Date of Procedure: 08/25/24 Pre-Operative Diagnosis: see problem list Post-Operative Diagnosis: same plus left ovarian mass Surgery/Procedure Performed: laparoscopic left salpingoophorectomy seam hammerer: Yes Rat Exterminator: Keri Foster Tasks completed by library serials assistant: Opening & closing, Altering tissue and Insert Trochanter Additional payroll human resources assistant?: No Type of Anesthesia: General RN Documented Start/Stop Times: Operation Date: 08/25/24 02:15 Case Time Anesthesia Start 08/25/24 02:09 Into Room 08/25/24 02:09 Procedure Start 08/25/24 02:32 Procedure End 08/25/24 03:11 Anesthesia End 08/25/24 03:19 Out of Room 08/25/24 03:19 Into Recovery 08/25/24 03:21 Out of Recovery 08/25/24 04:27 Into Phase II Recovery 08/25/24 04:28 Out of Phase II 08/25/24 04:58 Procedure Start Time: 02:32 Procedure Stop Time: 03:11 Select all DRAINS/GRAFTS/IMPLANTS that apply: None Estimated Blood Loss: 150 Specimen collected: Yes Description of specimen(s) removed: ectopic, tube Description of surgery: Patient was taken in the operating room and was placed under general anesthesia was prepped and draped in normal sterile fashion in the dorsal lithotomy position. Bladder was drained of clear urine and SCDs were on preoperatively. Uterus was sounded and a uterine manipulator was placed after dilating. Attention was then paid to the abdominal portion of the procedure and the umbilicus was elevated with towel clamps and injected with Marcaine and after a 5 mm incision was made and the Veress needle was entered into the abdomen confirmed to be intra-abdominal with a low opening pressure of less than 5 mmHg. Abdomen was insufflated with CO2 gas and a 5 mm optical trocar was placed under direct visualization. A left lower quadrant 5 mm port and a 5 mm port suprapubically were placed under direct visualization. Uterus was well visualized and upon inspection of the pelvis and ruptured ectopic with blood in the abdomen was seen in the left tube and left ovary was enlarged and abnormal appearing, so decision was made to remove it due to suspicion for underlying tumor. Using a LigaSure device the IP ligament and mesosalpinx was transected and the fallopian tube and ovary was removed including the ectopic and removed through the umbilical port site that was enlarged to a 12 mm port that was enlarged to allow passage of a laparoscopic bag. Excellent hemostasis was noted in the pelvis and the port site was closed through the fascia using a Drew Evans with an 0 Vicryl. Liver and upper abdomen were visualized notably within normal limits and no other gross abnormalities were seen in the abdomen. All instruments removed from the abdomen after gas was desufflated. Port sites were closed with 3-0 Monocryl Steri's and op sites were applied. All instruments removed from the vagina and patient was awoken and taken recovery in stable condition. Surgical Findings: left ectopic Complications Complications: No
--- NOTE | 2024-08-25 02:15 | FAL_PTH ---
PATIENT: NANI HOUSER LOC: [facility] U#:[id number] AGE/SX: 33/F ROOM: RE08/25/[address]: Dr. Nora Benoit MD : 1990 BED: DIS: 08/25/2024 SPEC #: [id number] RECD: 08/25/24 06:56 STATUS: TAO RELeonard #: [id number] BENY: 08/25/24 02:[address]: Nora Benoit DEPT: SURGICAL PATHOLOGY RECD BY: Luzma Adamson ENTERED: 08/25/24 10:39 SP TYPE: ECTOPIC OTHR DR: Jennifer Tom PA-C Tissues: ECTOPIC PREG Procedures: Surgery Specimen Level IV HEADER : Left fallopian tube and ovary OPERATION: Laparoscopic, , left salpingo-oophorectomy PRE-OP DIAGNOSIS: Ectopic of left ovary, vaginal bleeding TISSUE SUBMITTED: Left fallopian tube and ovary MICROSCOPIC DIAGNOSIS Left fallopian tube and ovary: Left Salpingo-oophorectomy: 1. Fallopian tube with ectopic and hemorrhage (See Microscopic Description) 2. Ovary with hemorrhagic corpus luteum cyst and follicular cysts. JS 08/27/2024 MICROSCOPIC DESCRIPTION Slides are reviewed. 1. Chorionic villi identified within fallopian tube. GROSS DESCRIPTION Received in fixative is one container labeled with the patient's name and designated left fallopian tube and ovary. The specimen consists of one fallopian tube including fimbrial end measuring 6 cm in length and 2 cm in diameter. Sections reveal lumen filled with blood clots. No tissue identified. Ovary measuring 5 x 3 x 2.5 cm. Sections reveal a hemorrhagic cyst measuring 3 cm in greatest dimension. A few smaller cysts are also present. 3D Modeler sections are submitted in nine cassettes with 1 - 4 fallopian tube and 5 - 9 ovary. / NAMITA:chencho TC:5 CPT: 22628 x2
--- NOTE | 2024-08-25 02:22 | DCINST_ITS ---
Discharge Instructions Diet Discharge Diet: No restrictions DC O2, CPAP, BIPAP needs Home O2 Discharge instructions: No Dressing / Incision Discharge Activity: Return to Normal Activity, May Not Drive ( while taking narcotic pain meds, when pain free), May Shower and May Take a Tub Bath (in 7 days) May resume sexual activity in: 1 week Weight Bearing Status: Full weight bearing Dressing / Incision Call your doctor if your incision/area has: Continuous Slow Oozing, Sudden Increased Bleeding, Increased Pain/ Swelling, Increased Redness and Foul Smelling Discharge Call your doctor if you observe: Fever of 101 or Higher, Using more than 1 pad per hour, Shortness of breath, Chest pain and Uncontrolled pain Suture Line Care: Avoid Pulling/Pushing and Avoid Pinching/Bending Remove Dressing in: 1 week (if present) Cleanse incision/area with: Soap & Water and Keep Dressing Clean & Dry Follow Up Care When: Call to make an appointment with your doctor for a fu/incision check in 1- 2 weeks. Test Results: Test results from this visit will be discussed in further detail at your follow- up appointment, if applicable. Discharge Plan Admission Attending Provider: Nora Benoit Primary Care Provider: Jennifer Tom Instructions Print Language: Hungarian Discharge Orders/Prescriptions Prescriptions: New oxycodone-acetaminophen [Percocet] 5-325 mg tablet 1 tab PO Q6H PRN (Reason: pain) 7 Days Qty: 20 0RF naproxen 500 mg tablet 500 mg PO BID PRN PRN (Reason: Pain) Qty: 30 1RF No Action citalopram 20 MG tablet 20 mg PO DAILY Referrals / Follow Up: Jennifer Tom PA-C [Primary Care Provider] - Disposition Disposition (needs filled in before D/C Order can be placed): Home, Self Care
[2024-08-25] MEDS: Bupivacaine 0.25% 30 ML Vial (02:55)
--- NOTE | 2024-08-25 03:21 | SUR.PHASEI ---
ON PACU ARRIVAL, PATIENT HAVING SYMPTOMS CONSISTENT WITH A PANIC ATTACK WELL POST-ANESTHESIA--AGITATION, RESTLESS, NAUSEA, TRYING TO GET UP, TACHYPNEA, MOANING, FEARFUL, TACHYCARDIC ON MONITOR, DIFFICULT TO KEEP MEDICAL EQUIPMENT IN PLACE. COMFORT, SUPPORT, REASSURANCE, WILL MEDICATE ORDERED PER DR LERNER, ANESTHESIA, SEE PACU OCT. DR LERNER STATES PATIENT HAD SINUS ARRHYTHMIA THROUGHOUT CASE.
--- NOTE | 2024-08-25 03:23 | PCM.POST.ANE ---
Anesthesia: Postop Eval I Current Vital Signs Temperature: 97.1 F Pulse Rate: 88 Blood Pressure: 157/80 Respiratory Rate: 20 Pulse Ox: 95 Oxygen Delivery Method: Room Air Assessment Airway patent: Yes Spontaneous unlabored respirations: Yes Mental status: Awake and Apprehensive nausea: Yes Vomiting: No Anesthesia Complication: No Fluid Hydration Crystalloid volume administer (ml): 800 Total IV fluid infused: 800 Progress Note Anesthesia document: Postop Eval 1 completed: Yes
--- NOTE | 2024-08-25 03:25 | PCM.POSTANE2 ---
Anesthesia Postop Eval I Sum Postop Eval Completion status Anesthesia document: Postop Eval 1 completed: Yes Anesthesia Postop Eval I Summary Anesthesia Postop Eval I Summary: Anesthesia Postop Eval I: Assessment Summary Airway patent Yes 08/25/24 03:25 Spontaneous unlabored Yes 08/25/24 03:25 respirations Mental status Awake,Apprehensive 08/25/24 03:25 nausea Yes 08/25/24 03:25 Vomiting No 08/25/24 03:25 Anesthesia Postop Eval I: Fluid Summary Crystalloid volume administer 800 08/25/24 03:25 (ml) Colloids volume administered ( ml) Blood Product volume administered (ml) Total IV fluid infused 800 08/25/24 03:25 Anesthesia Postop Eval I: Summary Notes Anesthesia Complication No 08/25/24 03:25 Anesthesia Complication Comment: Post-operative progress note Anesthesia: Postop Eval II Evaluation Mental status: Awake and Apprehensive Pain Level: 2 nausea: Yes Vomiting: No
[2024-08-25] MEDS: HYDROcodone Bitartrate/Apap 5/325 Tablet PO (04:32)
--- NOTE | 2024-08-28 13:00 | PCM.PRE.AN2 ---
ASA Classification* ASA Classification ASA Classification: 2 and E Assessment & Plan Anesthesia* Anesthesia Assessment Anesthesia Assessment: Discussed sedation and/or anesthesia options, risks, benefits, and alternatives with patient/parents/legal guardian/POA. Questions invited. The patient/parents/legal guardian/POA seems to understand and agrees to proceed with anesthesia plan. Reviewed the physical assessment, medical history, allergy history and patient home medications list prior to surgery/procedure/anesthetic and documented any changes. Performed airway and anesthesia risk assessments. Anesthesia Type Anesthesia Type: General History Source History Obtained from:: Patient and Chart Anesthesia Focused Assessment* Temperature: 98.2 F Pulse Rate: 85 Blood Pressure: 119/77 Respiratory Rate: 18 Pulse Ox: 100 Airway Assessment Mouth opens: 2 cm Mallampati Score: II Teeth Condition: Intact Neck Range of motion (ROM): Full ROM Focused Labs Anesthesia Preop lab: CBC WBC 7.9 K/mm3 (4.4-11.0) 08/27/24 15:23 RBC 3.97 M/mm3 (4.2-5.4) L 08/27/24 15:23 Hgb 12.2 g/dL (12.0-15.0) 08/27/24 15:23 Hct 37.3 % (37-47) 08/27/24 15:23 Plt Count 276 K/mm3 (150-450) 08/27/24 15:23 CHEMISTRY Potassium 4.1 mmol/L (3.5-5.1) 08/27/24 15:23 Sodium 142 mmol/L (136-145) 08/27/24 15:23 BUN 10 mg/dL (7-18) 08/27/24 15:23 Creatinine 0.59 mg/dL (0.55-1.02) 08/27/24 15:23 Glucose 85 mg/dL (74-106) 08/27/24 15:23 POC Glucose 93 mg/dL (70-110) 01/25/17 17:59 TSH 0.10 uIU/mL (0.358-3.74) L 01/07/14 15:36 COAG PT 11.7 SECONDS (11.7-14.9) 01/25/17 18:07 HCG, Quant 29 mIU/mL (1-3) H 08/27/24 16:30 Urine Test Positive Negative H 08/24/24 22:37 Pre-Assessment Diagnosis/Proposed Procedure Planned Operative Procedure(s): laparoscopic ectopic removal Anesthesia History Anesthesia History - reimbursement counselor: Anesthesia History - reimbursement counselor Hx Hospitalization No 01/10/18 12:30 Any Problems With Anesthesia No 08/25/24 01:44 Cholinesterase deficiency No 08/25/24 01:44 You/Your Family Experience No 08/25/24 01:44 fever (hyperthermia) with Relationship Recent Exposure to Contagious No 08/25/24 01:44 Disease Does patient have nerve No 08/25/24 01:44 stimulator Patient instructed to have No 08/25/24 01:44 device shut off --Does patient have Pacemaker or ICD? When Was Last Pacemaker Check QUESTION #4 FULL TEXT: You/Your Family Experience fever (hyperthermia) with Anesthesia Last Oral Intake Last Oral intake: Last Oral Intake NPO since Meds taken in AM with sips of water? Meds patient instructed to take am of surgery PONV PONV - reimbursement counselor: PONV - reimbursement counselor Female HX of Motion Sickness HX of N/V After Surgery Non-Smoker Duration of Surgery greater than 60 minutes Number of Risk Factors PONV Score Height & Weight Height & Weight: Anesthesia: Height & Weight Height 5 ft 08/25/24 01:44 Weight: 57.742 kg 08/25/24 01:44 Body Mass Index (BMI) 24.8 08/25/24 01:44 Respiratory Assessment Respiratory Assessment - reimbursement counselor: Respiratory Tract Infection Hx - reimbursement counselor Hx Respiratory Tract Infection No 08/25/24 01:44 STOP Sleep Apnea STOP Sleep Apnea - reimbursement counselor: STOP Sleep Apnea - reimbursement counselor Hx Hypertension No 08/25/24 01:44 Hx Sleep Apnea No 08/25/24 04:27 CPAP BIPAP Do you snore loudly (louder No 08/25/24 01:44 than talking or can be heard Do you often feel tired/ No 08/25/24 01:44 fatigued/ sleepy during daytime? Has anyone observed you stop No 08/25/24 01:44 breathing during sleep? STOP Results Negative 08/25/24 03:21 QUESTION #5 FULL TEXT : Do you snore loudly (louder than talking or can be heard through closed doors)? 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 Specify any problems Hx of Preganancy in last 3 Months Nurse Filling Out Transfusion & Questions: Date: Time: Patient unable to answer at this time (ie. confused, unrespo /Reproduction History /Reproductive History - reimbursement counselor: /Reproductive Hx- reimbursement counselor Hx Now Yes 08/25/24 01:44 Gestational Age (in weeks): EDC: Hx Hx Para 2 08/25/24 01:40 Hx Section SAB No 08/24/24 20:54 PFSH Home Medications ?Medication ?Instructions ?Recorded ?Last Taken ?Type citalopram 20 mg tablet 20 mg PO DAILY 01/10/18 Unknown History naproxen 500 mg tablet 500 mg PO BID PRN PRN Pain #30 tabs 08/25/24 Unknown Rx oxycodone-acetaminophen 5 mg-325 1 tab PO Q6H PRN pain 7 days #20 08/25/24 Unknown Rx mg tablet (Percocet) tabs Allergy/AdvReac Type Severity Reaction Status Date / Time morphine AdvReac Other Verified 08/27/24 15:05 Surgical History S/P oophorectomy History of salpingectomy History of surgery on arm delivery delivered Social History Smoking Status: Current every day smoker tobacco type: cigarettes Review of Systems (Anesthesia) ROS Narrative System reviewed and no additional complaints, except as documented.
[2024-08-28 13:01] VITALS: BP 119/77; PULSE 85; RESP 18; TEMP 36.8; O2SAT 100
== END 2024-08-25 04:58 | disposition home or self-care (01) ==
LOC: ED 08-25 01:38 → SDC 08-25 01:57 → AC 08-25 01:58
PROVIDERS: Emergency Provider Emergency Medicine; PCP Family Medicine; Visit Provider Obstetrics & Gynecology
PROC: 10T24ZZ Resection of Products of Conception, Ectopic, Percutaneous Endoscopic Approach (ICD-10-PCS; CPT 59150; principal; 2024-08-25 02:00)
DX: O00.202 Left ovarian pregnancy without intrauterine pregnancy (principal); O99.330 Smoking (tobacco) complicating pregnancy, unspecified trimester; F17.210 Nicotine dependence, cigarettes, uncomplicated; O99.891 Other specified diseases and conditions complicating pregnancy; N83.12 Corpus luteum cyst of left ovary
CPT/HCPCS: 59151; 00840; 76817; 80048; 81001; 81025; 84702; 85025; 86900; 86901; 88305; 90384; 99283; A4216; J2405; J2790; J2791

== ENCOUNTER 2024-08-27 15:04 | Emergency (ER) | payer MEDICAID, SELFPAY ==
[2024-08-27 15:05] VITALS: BP 123/61; PULSE 87; RESP 16; TEMP 36.6; O2SAT 100
[2024-08-27 15:07] VITALS: BP 123/91; PULSE 87; RESP 16; TEMP 36.6; O2SAT 100
[2024-08-27 15:44] LABS: Absolute Lymphocyte Count 2.99 X10^3/uL (0.83-4.51); Absolute Neutrophil Count 4.1 X10^3/uL (2.0-7.7); Basophil# 0.05 X10^3/uL; Basophil% 0.6 % (0-1); Eosinophil# 0.34 X10^3/uL; Eosinophils% 4.3 % (0-5); Hematocrit 37.3 % (37-47); Hemoglobin 12.2 g/dL (12.0-15.0); Lymphocyte # 2.99 X10^3/ul (0.83-4.51); Lymphocyte % 37.9 % (19-41); Mean Corp Hgb Conc 32.7 g/dL (32-36); Mean Corpuscular Hgb 30.7 pg (27.0-32.0); Mean Platelet Vol. 9.8 fl (6.2-12.0); Monocyte# 0.41 X10^3/uL; Monocyte% 5.2 % (0-10); NRBC Flagged by Analyzer 0 % (0-5); Neutrophil # 4.07 X10^3/uL (2.7-7.7); Neutrophil % 51.7 % (47-70); Platelet Count 276 K/mm3 (150-450); RBC Distribution Width CV 12.7 % (11.6-14.6); RBC Distribution Width SD 44.1 fl (35.1-43.9); Red Blood Count 3.97 M/mm3 (4.2-5.4); White Blood Count 7.9 K/mm3 (4.4-11.0)
[2024-08-27 15:59] LABS: Internal QC Validated? YES +Cl - CLEAR BKGD
[2024-08-27 16:01] LABS: Pregnancy, Serum, hCG Quali. POSITIVE Negative
[2024-08-27 16:05] LABS: ALB/GLOB Ratio 1.5 RATIO (0.9-2.4); AST(SGOT) 11 U/L (15-37); Alanine Aminotransfer ALT/SGPT 19 U/L (13-56); Alkaline Phosphatase 46 U/L (45-117); Anion Gap 3 (5-15); BUN 10 mg/dL (7-18); BUN/Creat Ratio 16.9 RATIO (10-20); Calcium,Total 8.8 mg/dL (8.5-10.1); Chloride 112 mmol/L (98-107); Creatinine, Serum 0.59 mg/dL (0.55-1.02); EST Glomerular Filtration Rate 123 mL/min (>60); Est Glom Filt Rate - Afr Amer 149 mL/min (>60); Globulin 2.7 g/dL (2.2-4.2); Glucose 85 mg/dL (74-106); Potassium 4.1 mmol/L (3.5-5.1); Protein, Total 6.7 g/dL (6.4-8.2); Sodium Level 142 mmol/L (136-145)
[2024-08-27 16:07] VITALS: BP 103/65; PULSE 75; RESP 16; TEMP 37.1; O2SAT 99
--- NOTE | 2024-08-27 16:17 | CT_ITS ---
STUDY: CT ABDOMEN AND PELVIS WITH CONTRAST REASON FOR EXAM: Female, 33 years old. left sided abd/flank pain, s/p salpingoophorectomy RADIATION DOSAGE (If Supplied By Facility): CTDIvol = ( 11.65 ) mGy, DLP = ( 481.19 ) mGycm TECHNIQUE: Transaxial images were obtained from the dome of the diaphragm to the symphysis pubis without oral contrast. ml of 100mL Isovue-370 contrast was administered. Sagittal and coronal images were reconstructed. Individualized dose optimization techniques were used for this CT. COMPARISON: None. FINDINGS: The visualized lung bases are unremarkable. The visualized portions of the heart are within normal limits. Normal liver. Normal gallbladder and extrahepatic biliary system. Normal spleen. Normal pancreas. Normal bilateral adrenal glands. Normal right kidney. Normal left kidney. No visualized hydronephrosis or renal masses or CT evidence of pyelonephritis. No bowel dilatation or obstruction or free air or abscess. Normal visualized stomach. Normal small intestine. Normal colon. The appendix is visualized and appears normal. Large amount retained stool seen. Normal abdominal aorta. Normal inferior vena cava. Normal retroperitoneum. Normal urinary bladder. Unremarkable uterus. Central IUD. Trace amount of free fluid in the cul-de-sac is most likely physiologic. Unremarkable adnexa. Postsurgical scarring is seen at the umbilicus and anterior abdominal wall. Normal abdominal wall. Normal osseous structures. CT/Abdomen/Pelvis W IV Cont ONLY IMPRESSION: 1. No acute process of the abdomen and pelvis. 2. Large amount retained stool throughout the colon. Electronically Signed: Jermaine Segal MD at 17:52 EST ,
--- NOTE | 2024-08-27 16:19 | EDS_ITS ---
HPI HPI - GI History of Present Illness Chief Complaint: Flank Pain Informant: patient Narrative Narrative: Patient states has been having pain in her left flank since her left salpingo- oophorectomy for ectopic 3 days ago but it is getting worse. Nausea no vomiting. Occasional dysuria but not every time, the pain is urethral. The pain in her left flank feels sort of like a kidney stone she had in the past. She denies any fevers or chills or problems breathing. She is not eating well, she has not had a bowel movement yet and does not feel the need to despite taking laxatives, states she has urinated only 3 times all day today, seen and evaluated after 1600. She states she is drinking fluids. She states she took an oxycodone prior to coming here so her pain is not very bad right now. PFSH PFS Home Medications ?Medication ?Instructions ?Recorded ?Last Taken ?Type citalopram 20 mg tablet 20 mg PO DAILY 01/10/18 Unknown History naproxen 500 mg tablet 500 mg PO BID PRN PRN Pain #30 tabs 08/25/24 Unknown Rx oxycodone-acetaminophen 5 mg-325 1 tab PO Q6H PRN pain 7 days #20 08/25/24 Unknown Rx mg tablet (Percocet) tabs Allergy/AdvReac Type Severity Reaction Status Date / Time morphine AdvReac Other Verified 08/27/24 15:05 Surgical History S/P oophorectomy History of salpingectomy History of surgery on arm delivery delivered Social History Smoking Status: Current every day smoker tobacco type: cigarettes ROS ROS ED Constitutional Constitutional ED: Denies chills or fever(s) Eyes Eyes: Denies change in vision or diplopia ENT ENT ED: Denies rhinorrhea or sore throat Cardiovascular Cardiovascular: Denies chest pain or palpitations Respiratory/Chest Respiratory/Chest: Denies cough or dyspnea Gastrointestinal Gastrointestinal: Reports abdominal pain and nausea; Denies diarrhea or vomiting Genitourinary Genitourinary ED: Reports drinking/eating less, dysuria and flank pain; Denies hematuria or urinary frequency Musculoskeletal Musculoskeletal: Reports back pain; Denies neck pain Integumentary Denies abscess or rash Neurologic Neurologic: Denies headache(s), paresthesias or weakness Psychiatric Psychiatric: Denies anxiety or suicidal thoughts EXAM Physical Exam Const Vital Signs: 08/27/24 15:05 08/27/24 15:07 08/27/24 16:07 Temperature 97.8 F 97.8 F 98.8 F Temperature Source Oral Temporal Oral Pulse Rate 87 87 75 Respiratory Rate 16 16 16 Blood Pressure 123/61 H 123/91 H 103/65 Blood Pressure Mean 81 101 77 Pulse Ox 100 100 99 Oxygen Delivery Method Room Air Room Air Room Air 08/27/24 17:00 Temperature 98.5 F Temperature Source Oral Pulse Rate 72 Respiratory Rate 18 Blood Pressure 124/82 H Blood Pressure Mean 96 Pulse Ox 100 Oxygen Delivery Method Room Air Positive well nourished and well developed General Appearance ED: well developed and NAD HEENT Reports moist mucous membranes normocephalic and atraumatic Eyes PERRL and EOMs intact bilaterally Neck full ROM and supple Resp normal respiratory effort and clear to auscultation bilaterally Cardio regular rate, regular rhythm and no murmurs GI non-distended GI Narrative: Tender diffusely. No guarding or rebound. Soft and nondistended. Bowel sounds are present. Auscultation: hypoactive bowel sounds Palpation: soft Back/Spine General Back: CVA tenderness left (Mild) and other FROM Extremity normal to inspection General Extremety ED: Negative for edema, pulses abnormal or tenderness General Extremity: Negative for edema or pulses abnormal Neuro oriented x3, CN's II-XII intact bilaterally and no sensory deficits noted Sensorium / Orientation: awake and alert Motor Exam: strength 5/5 throughout Skin no rashes or lesions noted and no wounds MDM MDM MDM Narrative Medical decision making narrative: Differential here includes postoperative complication, kidney stone, constipation/colitis. Labs were obtained, patient was given fluids and Zofran in the meantime, the labs are normal and I obtained a CT of the abdomen/pelvis with IV contrast. Patient's is positive, this is likely residual from her recent ectopic. I sent a quantitative hCG, indeed it has gone down quite a bit and is now 29 from around 400 several days ago. I reviewed the imaging as well as results which I agree with, essentially unremarkable for anything acute but consistent with a lot of stool in the left side of the abdomen consistent with constipation which is probably causing the patient's pain. I offered her an enema she declines and prefers to try Dulcolax and MiraLAX at home and follow-up with her surgeon as an outpatient. She comfortable with that plan we discussed reasons to return. Lab Data Attestation: I reviewed the patient's lab results. Labs: Laboratory Results - last 24 hr 08/27/24 08/27/24 08/27/24 15:23 16:10 16:30 WBC 7.9 RBC 3.97 L Hgb 12.2 Hct 37.3 MCV 94.0 MCH 30.7 MCHC 32.7 RDW Std Deviation 44.1 H RDW Coeff of Shannan 12.7 Plt Count 276 MPV 9.8 Immature Gran % (Auto) 0.300 Neut % (Auto) 51.7 Lymph % (Auto) 37.9 Pratt % (Auto) 5.2 Eos % (Auto) 4.3 Baso % (Auto) 0.6 Absolute Neuts (auto) 4.1 Absolute Lymphs (auto) 2.99 Nucleated RBC % 0 Sodium 142 Potassium 4.1 Chloride 112 H Carbon Dioxide 26.0 Anion Gap 3 L BUN 10 Creatinine 0.59 Est GFR (MDRD) Af Amer 149 Est GFR (MDRD) Non-Af 123 BUN/Creatinine Ratio 16.9 Glucose 85 Calcium 8.8 Total Bilirubin 0.30 AST 11 L ALT 19 Alkaline Phosphatase 46 Total Protein 6.7 Albumin 4.0 Globulin 2.7 Albumin/Globulin Ratio 1.5 HCG, Quant 29 H Serum , Qual POSITIVE Urine Color Yellow Urine Clarity Cloudy Urine pH 8.0 Ur Specific Velva 1.015 Urine Protein Negative Urine Glucose (UA) Normal Urine Ketones Negative Urine Occult Blood 150 H Urine Nitrite Negative Urine Bilirubin Negative Urine Urobilinogen Normal Ur Leukocyte Esterase Negative Urine RBC 0-5 SEEN Urine WBC 0 SEEN Ur Squamous Epith Cells 0-5 SEEN Amorphous Sediment 2+ Urine Bacteria 0 SEEN Coarse Granular Casts 0-5 SEEN Urine Mucus 0 SEEN Radiography Diagnostic Testing: Clinical Impression(s) from Imaging Studies Abdomen/Pelvis CT 08/27/24 16:17 IMPRESSION: 1. No acute process of the abdomen and pelvis. 2. Large amount retained stool throughout the colon. Electronically Signed: Jermaine Segal MD at 17:52 EST Reading Location ID and State: [facility] / [place] , Service support , Discharge Plan Triage Chief Complaint: Flank Pain Other Complaint: Abd Pain ED Provider: Cas Gipson Dx/Rx/DC Orders Clinical Impression: Constipation, Left sided abdominal pain, History of salpingectomy Instructions: ED Constipation (Adult) Prescriptions: No Action citalopram 20 MG tablet 20 mg PO DAILY oxycodone-acetaminophen [Percocet] 5-325 mg tablet 1 tab PO Q6H PRN (Reason: pain) 7 Days Qty: 20 0RF naproxen 500 mg tablet 500 mg PO BID PRN PRN (Reason: Pain) Qty: 30 1RF Primary Care Provider: Jennifer Tom Referrals: Jennifer Tom, PA-C [Primary Care Provider] - 3-5 Days if not improving (And/or your mortgage loan assistant) Activity Restrictions/Additional Instructions: He would likely have less pain after you have a good bowel movement or 2. Try taking Dulcolax and/or MiraLAX or generic equivalent at home for the next couple days and drink plenty of fluids. Take noticed that oxycodone can cause constipation, so only take is much as you absolutely need to help control your pain. Print Language: Mexican Disposition Disposition: Home, Self Care
[2024-08-27 16:21] LABS: Bacteria 0 SEEN /hpf (None Seen); Mucous, Urine 0 SEEN /hpf (<or=2+); White Blood Cells 0 SEEN /hpf (0-5)
[2024-08-27] MEDS: Ondansetron 4 MG/2 ML Vial IV (16:28)
[2024-08-27] MEDS: 0.9% Normal Saline (1000mL) 1,000 ML 999 ML IV (16:28)
[2024-08-27 16:35] LABS: Color, Urine Yellow (Yellow); Glucose, Dipstick Normal (Normal); Ketone-Dipstick Negative (Negative); Leukocyte Esterase-Dipstick Negative /ul (Negative); Nitrite-Dipstick Negative (Negative); Occult Blood-Urine 150 /ul (Negative); Protein-Dipstick Negative (Negative); Specific Gravity, Urine 1.015 (1.002-1.030); Urine Bilirubin Dipstick Negative (Negative); Urine Clarity Cloudy (Clear); Urine Urobilinogen Normal (Normal)
[2024-08-27 16:42] LABS: Amorphous Sediment 2+; Coarse Granular Cast 0-5 SEEN /lpf (0-5 /lpf); Red Blood Cells-Urine 0-5 SEEN /hpf (0-5); Squamous Epithelial Cells - UA 0-5 SEEN /hpf (5-10)
[2024-08-27 16:59] LABS: hCG Titer Quant., Serum 29 mIU/mL (1-3)
[2024-08-27 17:00] VITALS: BP 124/82; PULSE 72; RESP 18; TEMP 36.9; O2SAT 100
[2024-08-27 18:20] VITALS: BP 100/75; PULSE 59; RESP 16; TEMP 36.6; O2SAT 98
== END 2024-08-27 18:20 | disposition home or self-care (01) ==
PROVIDERS: Emergency Provider Emergency Medicine; PCP Family Medicine; Referring Provider Emergency Medicine; Visit Provider Emergency Medicine
DX: K59.00 Constipation, unspecified (principal); R10.9 Unspecified abdominal pain; R11.0 Nausea; F17.210 Nicotine dependence, cigarettes, uncomplicated; M54.9 Dorsalgia, unspecified; Z90.722 Acquired absence of ovaries, bilateral
CPT/HCPCS: 74177; 80053; 81001; 84702; 84703; 85025; 96361; 96374; 99284; Q9967; A4216; J2405

== ENCOUNTER → 2024-09-23 | Outpatient (CLI) | payer MEDICAID, SELFPAY ==
--- NOTE | 2024-09-23 14:55 | US_ITS ---
PROCEDURE: ULTRASOUND OF THE FEMALE PELVIS - COMPLETE REASON FOR EXAM: Female, 33 years old. RLQ pain, has iud hx of RECENT ECTOPIC SURGERY ON 08/25 W/ LEFT OOPHORECTOMY TECHNIQUE: Transabdominal and Transvaginal TECHNICAL QUALITY: Adequate. COMPARISON: CT of abdomen and pelvis dated August 27, 2024. Pelvic ultrasound dated August 24, 2024 FINDINGS: * Stable fundal/central endometrial IUD. * Interval development of a mildly degenerated or hemorrhagic right ovarian moderate size cyst measuring 4.4 x 4.9 x 2.7 cm * No free fluid or pneumoperitoneum is seen. * No visualized adnexal masses or elements. * Previously seen left ovary and associated complex cystic and soft tissue process was surgically resected since the prior study. The uterus is anteverted and is in a midline position. The uterus measures 7.4 x 5.1 x 3.1 cm. There is no demonstrated myometrial mass. The endometrium measures 4 mm in thickness, and is hyperechoic. There is no demonstrated endometrial mass. There is a Nabothian cyst of the cervix. The right ovary is visualized. The right ovary measures 6.0 x 5.6 x 3.7 cm. There is no right ovarian mass. There is no visualized right adnexal mass or complex lesion. Normal color vascular flow and Doppler signal is demonstrated in right ovary. There is no fluid in the cul-de-sac. US/Pelvic w/ Transvaginal IMPRESSION: 1. Stable fundal/central endometrial IUD. 2. Interval development of a mildly degenerated or hemorrhagic right ovarian moderate size cyst measuring 4.4 x 4.9 x 2.7 cm = O-RADS US 2 3. No free fluid or pneumoperitoneum is seen. 4. No visualized adnexal masses or elements. 5. Previously seen left ovary and associated complex cystic and soft tissue process was surgically resected since the prior study. References: OVARIAN-ADNEXAL REPORTING AND DATA SYSTEM ULTRASOUND (O-RADS US) Classification For risk stratification, the O-RADS US system uses five categories (O-RADS 1?5), from normal (1) to high risk of malignancy (5). An O-RADS US 0 (zero) category is used for an incomplete evaluation. 1. O-RADS US 0 an incomplete evaluation 2. O-RADS US 1 Physiologic category (normal premenopausal ovary) ovarian follicle (<3 cm) corpus luteum (typically <3 cm) 3. O-RADS US 2 Almost certainly benign category (<1% risk of malignancy) - consider gynecology referral for cases that require imaging follow-up * simple cyst 3-5 cm;typical hemorrhagic cyst;dermoid cyst;endometrioma;paraovarian cyst; peritoneal inclusion cyst;hydrosalpinx 4. O-RADS US 3 Low risk of malignancy (1% to <10%) - needs a referral to phlebotomy specialist or professor of environmental engineering with a view to MRI * unilocular or bilocular or multilocular >10 cm (simple or non-simple) * lesions looking like typical dermoids, endometriomas, or hemorrhagic cysts >10 cm 5. O-RADS US 4 Lesions with an intermediate risk of malignancy (10% to <50%) - needs phlebotomy specialist review or MRI as well as management by a professor of environmental engineering with gynecological oncology support or solely by a gynecological oncologist * unilocular cyst with a solid component, any size, 1-3 papillary projections, any color score * multilocular cyst with solid component, any size, color score 1-2 ? 6. O-RADS US 5 * Lesions with a high risk of malignancy (?50%) - needs a referral to a gynecological oncologist * presence of ascites / peritoneal nodularity History and etymology O-RADS was developed and published in 2018 by an international multidisciplinary committee, comprising clinicians and researchers from the dash of radiology, gynecology, pathology, and gynecologic oncology, and sponsored by the [employer] ([employer]). It was originally designed for sonographic evaluation, and in 2019 the system was extended to include MRI evaluation. Electronically Signed: Jermaine Segal MD at 18:04 EST Reading Location ID and State: [facility] / [place] , Service support ,
== END | disposition home or self-care (01) ==
LOC: US 14:54
PROVIDERS: PCP Family Medicine; Referring Provider Obstetrics & Gynecology; Visit Provider Obstetrics & Gynecology
DX: R10.31 Right lower quadrant pain (principal)
CPT/HCPCS: 76830; 76856

== ENCOUNTER → 2024-09-25 | Outpatient (CLI) | payer MEDICAID, SELFPAY ==
[2024-09-28 21:07] LABS: Chlamydia By Nucleic Acid AMP Negative (Negative); Gonococcus By Nucleic Acid AMP Negative (Negative)
== END | disposition home or self-care (01) ==
PROVIDERS: PCP Family Medicine; Referring Provider Obstetrics & Gynecology; Visit Provider Obstetrics & Gynecology
DX: Z11.3 Encounter for screening for infections with a predominantly sexual mode of transmission (principal)
CPT/HCPCS: 87491; 87591